=== PATIENT | female | born 1970 | race Caucasian/White ===

== ENCOUNTER → 2019-05-03 16:27 | Outpatient (CLI) | payer OTHER, SELFPAY ==
--- NOTE | 2019-05-03 16:34 | DI.MRI.S_ITS ---
PROCEDURE: MR ANKLE LT WO CON INDICATIONS: OTHER SYNOVITIS AND TENOSYNOVITIS,LEFT ANKLE TECHNIQUE: Noncontrast sagittal T1 spin echo and T2 fast spin echo with fat saturation, axial proton density fast spin echo and T2 fast spin echo with fat saturation, coronal T1 spin echo and T2 fast spin echo with fat saturation through the ankle/hindfoot. COMPARISON: None. FINDINGS: Image quality: Excellent. Bones and joints: No bone marrow contusions or fractures. No hindfoot coalitions. No osteochondral injuries of the talar dome. No pathologic joint effusions. Small plantar calcaneal enthesophyte is seen. Medial structures: Thickened posterior tibial tendon at the level of the subtalar joint is seen with small amount of fluid distending tendon sheaths consistent with tenosynovitis. Flexor digitorum longus and flexor hallucis longus tendons are intact. The posterior tibial neurovascular bundle appears normal within the tarsal tunnel, without extrinsic mass effect. There is thickening of superficial and deep fibers of deltoid ligament consistent with ligament sprain/low-grade partial-thickness tear. Sprain/partial thickness tear involving spring ligament complex is also seen. Lateral structures: The anterior talofibular, calcaneofibular, and posterior talofibular ligaments appear intact. More superiorly, the anterior and posterior tibiofibular ligaments appear intact, as is the intermalleolar ligament. The tibiofibular syndesmosis is normal in width at 2 mm or less. The peroneus longus and brevis tendons demonstrate normal location and morphology. Adjacent bony peroneal tubercle and retrotrochlear prominence are normal in size. The sinus tarsi demonstrates normal fatty signal, without edema, fibrosis, or cyst formation. Visualized sinus tarsi components (cervical ligament, interosseous talocalcaneal ligament, roots of the inferior extensor retinaculum) appear normal. The calcaneonavicular and calcaneocuboid components of the bifurcate ligament appear intact. The dorsal calcaneocuboid ligament appears intact. Anterior structures: The tibialis anterior, extensor hallucis longus, and extensor digitorum longus tendons appear intact. The dorsal talonavicular ligament appears intact. Posterior and plantar structures: Achilles tendon is intact. Medial and lateral bands of the plantar fascia are of normal thickness. No abductor digiti quinti muscle atrophy to suggest Lu neuropathy. IMPRESSION: 1. Moderate tenosynovitis involving posterior tibial tendon at the level of subtalar joint. No evidence of ankle tendon tear. 2. Sprain/low-grade partial-thickness tear involving the medial ankle ligaments as above. Lateral ankle ligaments are intact. 3. No marrow edema. No fracture or dislocation. Achilles tendon is intact. Plantar porosis is intact. Dictated by: Jeffrey Priest M.D. on 05/03/2019 at 19:36 Approved by: Jeffrey Priest M.D. on 05/03/2019 at 19:40
== END ==
PROVIDERS: Visit Provider Podiatrist
DX: M65.872 Other synovitis and tenosynovitis, left ankle and foot (principal); S93.422A Sprain of deltoid ligament of left ankle, initial encounter; S93.492A Sprain of other ligament of left ankle, initial encounter
CPT/HCPCS: 73721

== ENCOUNTER → 2024-10-16 15:10 | Outpatient (CLI) | payer OTHER, SELFPAY ==
--- NOTE | 2024-10-16 | DI.RAD.S_ITS ---
PROCEDURE: XR FOOT RT MIN 3V INDICATIONS: FOOT PAIN TECHNIQUE: 3 views of the foot were acquired. COMPARISON: None. FINDINGS: Bones: No fractures or dislocations. There is normal right foot alignment with weight bearing. Mild osteoarthritic changes are seen in hindfoot joints and 1st MTP joint. Calcaneal pitch angle measures No suspicious bony lesions. Soft tissues: No tibiotalar joint effusion. Achilles tendon appears normal. IMPRESSION: No acute right foot fracture or dislocation. 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 Dictated by: Jeffrey Priest M.D. on 10/17/2024 at 11:09 Approved by: Jeffrey Priest M.D. on 10/17/2024 at 11:10
--- NOTE | 2024-10-16 15:15 | DI.RAD.S_ITS ---
PROCEDURE: XR FOOT LT MIN 3V INDICATIONS: Pain, unspecified TECHNIQUE: 3 views of the foot were acquired. COMPARISON: None. FINDINGS: Bones: No fractures or dislocations. There is mild pes planus with weight bearing. Calcaneal pitch angle measures 14.5?. No suspicious bony lesions. Well-defined plantar and dorsal calcaneal enthesophytes are seen. Mild 1st MTP joint osteoarthritic changes are noted. Soft tissues: No tibiotalar joint effusion. Achilles tendon appears normal. IMPRESSION: Mild pes planus with weight-bearing. Mild 1st MTP joint osteoarthritis. No acute fracture or dislocation. Mild plantar and dorsal calcaneal enthesophytes. Dictated by: Jeffrey Priest M.D. on 10/17/2024 at 11:08 Approved by: Jeffrey Priest M.D. on 10/17/2024 at 11:09
== END ==
PROVIDERS: PCP Physician Assistant; Referring Provider Podiatrist Foot & Ankle Surgery; Visit Provider Podiatrist Foot & Ankle Surgery
DX: M21.42 Flat foot [pes planus] (acquired), left foot (principal); M19.072 Primary osteoarthritis, left ankle and foot; M19.071 Primary osteoarthritis, right ankle and foot; R52 Pain, unspecified
CPT/HCPCS: 73630